=== PATIENT | male | born 1985 | race Caucasian/White ===

== ENCOUNTER 2017-05-10 09:05 | Emergency (ER) | payer MEDICAID ==
[2017-05-10] MEDS ORDERED: Ketorolac 60 MG/2 ML SDV IM ONE (09:18)
--- NOTE | 2017-05-10 09:22 | EDM.PDOC ---
ED HPI GENERAL MEDICAL PROBLEM - General Chief Complaint: Lower Extremity Injury/Pain Stated Complaint: FALL OFF LADDER /PAIN LT KNEE Time Seen by Provider: 05/10/17 09:12 - History of Present Illness INITIAL COMMENTS - FREE TEXT/NARRATIVE: HISTORY AND PHYSICAL: History of present illness: The patient is a healthy 31-year-old male who presents with complaints of pain to his left knee that started just prior to admission when he was coming down a ladder at his house and misstepped and may have hyperextended the knee. He did not fall onto the knee and he doesn't recall twisting it but he feels pain to the back side of the knee area. He has no distal leg ankle or foot discomfort and no proximal thigh or hip discomfort. He has no neurosensory changes in the leg. He did not hit his head pass out or black out and has no head neck or back pain and no other complaints of other extremity issues. Patient has a history of having an injury in the past for which she had a where a long leg cast but he doesn't recall what he did and it was a long time ago. Patient did not take any medications prior to coming here Review of systems: As per history of present illness and below otherwise all systems reviewed and negative. Past medical history: As per history of present illness and as reviewed below otherwise noncontributory. Surgical history: As per history of present illness and as reviewed below otherwise noncontributory. Social history: No reported history of drug or alcohol abuse. Family history: As per history of present illness and as reviewed below otherwise noncontributory. Physical exam: Gen.: Well-developed well-nourished man who is nontoxic speaking clearly and easily in the ED. Vital signs of an reviewed by me HEENT: Atraumatic, normocephalic, negative for conjunctival pallor or scleral icterus, mucous membranes moist, throat clear, neck supple, nontender, trachea midline. There are no midline step-offs and as to defects of the cervical spine Lungs: Clear to auscultation, breath sounds equal bilaterally, chest nontender. Heart: S1S2, regular rate and rhythm no overt murmurs Abdomen: Soft, nondistended, nontender. NABS Pelvis: Stable nontender. No lateral hip tenderness Genitourinary: Deferred. Rectal: Deferred. Extremities: Atraumatic appearing without any soft tissue swelling joint effusions erythema ecchymosis or warmth to the left knee, there are no palpable bony deformities in the left lower extremity including the knee and there is tenderness only in the popliteal fossa area without fullness. Patient has discomfort with flexion and extension at the knee but he is able to do it. Distally and proximally there are no bony deformities or tenderness appreciated. The legs are, negative for cords or calf pain. Neurovascular unremarkable. Neuro: Awake, alert, oriented. Cranial nerves II through XII unremarkable. Cerebellum unremarkable. Motor and sensory unremarkable throughout. Exam nonfocal. Diagnostics: X-ray left knee Therapeutics: Toradol, knee immobilizer, crutches Impression: Acute left knee pain/injury rule out meniscal injury Definitive disposition and diagnosis as appropriate pending reevaluation and review of above. left knee Pain Score (Numeric/FACES): 8 - Related Data Allergies Allergy/AdvReac Type Severity Reaction Status Date / Time No Known Allergies Allergy Verified 05/10/17 09:07 Home Meds: Home Meds . [No Known Home Meds] 05/10/17 [History] Review of Systems - Review of Systems Review Of Systems: ROS reveals no pertinent complaints other than HPI. ED EXAM, GENERAL - Physical Exam Exam: See Below (See dictation) Course - Vital Signs Last Recorded V/S: Last Vital Signs Temp 36.1 C 05/10/17 09:14 Pulse Resp 16 05/10/17 09:14 BP 132/70 05/10/17 09:14 Pulse Ox 97 05/10/17 09:14 - Orders/Labs/Meds Orders: Active Orders 24 hr Category Date Time Status Knee 3V Lt [CR] Stat Exams 05/10/17 09:18 Taken DME for Discharge [COMM] Stat Oth 05/10/17 10:07 Ordered Meds: Medications Discontinued Medications Generic Name Dose Route Start Last Admin Trade Name Freq PRN Reason Stop Dose Admin Ketorolac Tromethamine 60 mg 05/10/17 09:18 05/10/17 09:28 Toradol IM 05/10/17 09:19 60 mg ONETIME ONE Administration Departure - Departure Time of Disposition: 10:08 Disposition: Home, Self-Care 01 Condition: Good Clinical Impression: Left knee injury Qualifiers: Encounter type: initial encounter Qualified Code(s): S89.92XA - Unspecified injury of left lower leg, initial encounter - Discharge Information Referrals: PCP,None [Primary Care Provider] - Forms: ED Department Discharge Additional Instructions: The following information is given to patients seen in the emergency department who are being discharged to home. This information is to outline your options for follow-up care. We provide all patients seen in our emergency department with a follow-up referral. The need for follow-up, as well as the timing and circumstances, are variable depending upon the specifics of your emergency department visit. If you don't have a primary care physician on staff, we will provide you with a referral. We always advise you to contact your personal physician following an emergency department visit to inform them of the circumstance of the visit and for follow-up with them and/or the need for any referrals to a consulting specialist. The emergency department will also refer you to a specialist when appropriate. This referral assures that you have the opportunity for followup care with a specialist. All of these measure are taken in an effort to provide you with optimal care, which includes your followup. Under all circumstances we always encourage you to contact your private physician who remains a resource for coordinating your care. When calling for followup care, please make the office aware that this follow-up is from your recent emergency room visit. If for any reason you are refused follow-up, please contact the [facility] emergency department at and ask to speak to the emergency department charge nurse. [facility]- [facility] [address] [place] [id number] [facility] Specialty Care--Orthopedic clinic Professional Building [address] [place] [id number] Ice and elevate the knee and use medications as prescribed and needed. Please wear knee immobilizer until you're followed up by the marketing services specialist and use crutches, try not to weight-bear as much as you can. Return to ER as needed and as discussed. - My Orders Last 24 Hours: My Active Orders 05/10/17 09:18 Knee 3V Lt [CR] Stat 05/10/17 10:07 DME for Discharge [COMM] Stat - Assessment/Plan Last 24 Hours: My Active Orders 05/10/17 09:18 Knee 3V Lt [CR] Stat 05/10/17 10:07 DME for Discharge [COMM] Stat
[2017-05-10 10:53] VITALS: BP 136/72
--- NOTE | 2017-05-10 16:56 | CR ---
EXAM DATE: 05/10/17 PATIENT'S AGE: 31 Patient: MAHI TINAJERO Facility: [place], [place] Site . Site : 1985 Study: XRay Knee Left [id number]/23/2017 9:51:32 AM Ordering Physician: Eyal Conrad Final Report: INDICATION: Trauma. Fell off ladder. COMPARISON: none TECHNIQUE: Three-view left knee FINDINGS: The bones are anatomically aligned. There is no evidence of fracture, erosion or intrinsic bone lesion. The soft tissues appear normal. IMPRESSION: No fracture identified. Dictated by Johnathan Wilkinson MD @ May 10 2017 10:03AM (Electronic Signature) Report Signed by Proxy. GISELA
== END 2017-05-10 10:30 | disposition home or self-care (01) ==
LOC: MW.ED 09:05
DX: S89.92XA Unspecified injury of left lower leg, initial encounter (principal); X50.1XXA Overexertion from prolonged static or awkward postures, initial encounter; Y92.009 Unspecified place in unspecified non-institutional (private) residence as the place of occurrence of the external cause
CPT/HCPCS: 73562; 96372; 99283; J1885